=== PATIENT | female | born 1960 | race Caucasian/White ===

== ENCOUNTER 2016-06-26 23:00 | Emergency (ER) | payer OTHER ==
[~2016-06-26] VITALS: Ht 175.3 cm; Wt 90.0 kg
[~2016-06-26 23:00] MED LIST: IOHEXOL 350 MG/ML 10 ML VIAL (for RAD DIAG) IV ONE
[2016-06-26 23:02] VITALS: BP 196/86; PULSE 58; RESP 20; TEMP 98; O2SAT 100
[2016-06-26] MEDS ORDERED: SODIUM CHLOR 0.9% 1000 ML INJ 1,000 ML IV SCH (23:43)
[2016-06-26] MEDS ORDERED: SODIUM CHLORIDE 0.9% FLUSH 5 ML FLUSH IVF PRN (23:45)
[2016-06-26] MEDS ORDERED: ONDANSETRON HCL 4 MG/2 ML VIAL IVP ONE (23:45)
[2016-06-26] MEDS ORDERED: MORPHINE SULFATE 4 MG/ML INJ IV PUSH ONE (23:45)
--- NOTE | 2016-06-27 00:10 | PD ---
HPI Chief Complaint: Flank/Kidney Pain Time Seen by Provider: 23:43 Travel History International Travel<30 days: No Contact w/Intl Traveler<30days: No Traveled to known affect area: No History of Present Illness HPI 56yo F with no significant PMH presents to the ED with c/o right flank pain since last night. States pain started in right lower abdomen and then radiated to right flank. Pain in more in the back and it is constant. +Nausea. Denies any fever, vomiting, chest pain, sob, urinary complaints. Pt took a xanax and it did not help. PFSH Past Medical History Medical History: Denies Significant Hx Diminished Hearing: No Thyroid Disease: Yes Tetanus Vaccination: > 5 Years Influenza Vaccination: No ?: Not Menopausal: Yes : 3 Para: 3 Past Surgical History Surgical History: No Previous Surgery Section: Yes Social History Alcohol Use: Yes (wine occ) Tobacco Use: No Substance Use: No Allergies-Medications (Allergen,Severity, Reaction): Coded Allergies: Vancomycin (Verified Allergy, Severe, CARDIAC ARREST, 06/26/16) Reported Meds & Prescriptions Reported Meds & Active Scripts Active Flomax (Tamsulosin HCl) 0.4 Mg Cap 0.4 Mg PO Q DAY Bactrim DS (Sulfamethoxazole-Trimethoprim) 800-160 Mg Tab 1 Tab PO BID Zofran Odt (Ondansetron Odt) 4 Mg Tab 4 Mg SL Q6HR PRN Percocet (Oxycodone-Acetaminophen) 7.5-325 mg Tab 1 Tab PO Q6H PRN Reported Potassium 99 Mg Tab 99 Mg PO DAILY Biotin 5 Mg Tab 5 Mg PO DAILY Krill Oil 500 mg (Krill Oil) 1 Cap Cap 500 Mg PO DAILY C-1000 (Ascorbic Acid) 1,000 Mg Tab 1,000 Mg PO DAILY Vitamin D-3 (Cholecalciferol) 1,000 Unit Tab 1,000 Units PO DAILY B-12 (Cyanocobalamin) 1,000 Mcg Subl 1,000 Mcg SL DAILY Alprazolam 0.5 Mg Tab 0.5 Mg PO Q8H PRN Levothyroxine (Levothyroxine Sodium) 125 Mcg Tab 125 Mcg PO DAILY Review of Systems Except as stated in HPI: all other systems reviewed are Neg Physical Exam Narrative GENERAL: 56yo F in moderate distress. SKIN: Warm and dry. HEAD: Atraumatic. Normocephalic. EYES: Pupils equal and round. No scleral icterus. No injection or drainage. ENT: No nasal bleeding or discharge. Mucous membranes pink and moist. NECK: Trachea midline. No JVD. CARDIOVASCULAR: Regular rate and rhythm. No murmur appreciated. RESPIRATORY: No accessory muscle use. Clear to auscultation. Breath sounds equal bilaterally. GASTROINTESTINAL: Abdomen soft, +RLQ ttp. No rebound tenderness or guarding. BACK: +CVA tenderness on right. MUSCULOSKELETAL: No obvious deformities. No clubbing. No cyanosis. No edema. NEUROLOGICAL: Awake and alert. No obvious cranial nerve deficits. Motor grossly within normal limits. Normal speech. PSYCHIATRIC: Appropriate mood and affect; insight and judgment normal. Data Data Last Documented VS Vital Signs Date Time Temp Pulse Resp B/P Pulse Ox O2 Delivery O2 Flow Rate FiO2 06/27/16 03:37 72 2 118/57 100 06/26/16 23:02 98.0 Orders Complete Blood Count With Diff (06/26/16 23:43) Comprehensive Metabolic Panel (06/26/16 23:43) Lipase (06/26/16 23:43) Urinalysis - C+S If Indicated (06/26/16 23:43) Ct Abd/Pel W Iv Contrast(Rout) (06/26/16 23:43) Iv Access Insert/Monitor (06/26/16 23:43) Ecg Monitoring (06/26/16 23:43) Oximetry (06/26/16 23:43) NPO (06/26/16 23:43) Morphine Inj (Morphine Inj) (06/26/16 23:45) Ondansetron Inj (Zofran Inj) (06/26/16 23:45) Sodium Chlor 0.9% 1000 Ml Inj (Ns 1000 M (06/26/16 23:43) Sodium Chloride 0.9% Flush (Ns Flush) (06/26/16 23:45) Ed Urine Pregnancytest Poc (06/26/16 23:43) Urine Culture (06/26/16 23:50) Ketorolac Inj (Toradol Inj) (06/27/16 00:45) Ceftriaxone Inj (Rocephin Inj) (06/27/16 00:45) Metoclopramide Inj (Reglan Inj) (06/27/16 01:15) Iohexol 350 Inj (Omnipaque 350 Inj) (06/26/16 13:21) Strain Urine PRN (06/27/16 01:59) Ondansetron Inj (Zofran Inj) (06/27/16 02:45) Oxycodone-Acetamin 7.5-325 Mg (Percocet (06/27/16 02:45) Labs Laboratory Tests Test 06/26/16 23:50 White Blood Count 10.6 TH/MM3 Red Blood Count 4.61 MIL/MM3 Hemoglobin 13.5 GM/DL Hematocrit 39.0 % Mean Corpuscular Volume 84.6 FL Mean Corpuscular Hemoglobin 29.3 PG Mean Corpuscular Hemoglobin 34.6 % Concent Red Cell Distribution Width 13.2 % Platelet Count 259 TH/MM3 Mean Platelet Volume 9.0 FL Neutrophils (%) (Auto) 66.4 % Lymphocytes (%) (Auto) 23.6 % Monocytes (%) (Auto) 8.3 % Eosinophils (%) (Auto) 1.1 % Basophils (%) (Auto) 0.6 % Neutrophils # (Auto) 7.0 TH/MM3 Lymphocytes # (Auto) 2.5 TH/MM3 Monocytes # (Auto) 0.9 TH/MM3 Eosinophils # (Auto) 0.1 TH/MM3 Basophils # (Auto) 0.1 TH/MM3 CBC Comment DIFF FINAL Differential Comment Urine Color YELLOW Urine Turbidity HAZY Urine pH 7.5 Urine Specific [place] 1.012 Urine Protein NEG mg/dL Urine Glucose (UA) NEG mg/dL Urine Ketones TRACE mg/dL Urine Occult Blood SMALL Urine Nitrite NEG Urine Bilirubin NEG Urine Urobilinogen LESS THAN 2.0 MG/DL Urine Leukocyte Esterase MOD Urine RBC 11 /hpf Urine WBC 9 /hpf Microscopic Urinalysis Comment CULTURE INDICATED Sodium Level 142 MEQ/L Potassium Level 4.0 MEQ/L Chloride Level 103 MEQ/L Carbon Dioxide Level 30.5 MEQ/L Anion Gap 9 MEQ/L Blood Urea Nitrogen 18 MG/DL Creatinine 1.02 MG/DL Estimat Glomerular Filtration 56 ML/MIN Rate Random Glucose 93 MG/DL Calcium Level 9.7 MG/DL Total Bilirubin 0.3 MG/DL Aspartate Amino Transf 9 U/L (AST/SGOT) Alanine Aminotransferase 15 U/L (ALT/SGPT) Alkaline Phosphatase 56 U/L Total Protein 7.6 GM/DL Albumin 4.0 GM/DL Lipase 182 U/L [facility] Medical Decision Making Medical Screen Exam Complete: Yes Emergency Medical Condition: Yes Differential Diagnosis Nephrolithiasis vs. pyelonephritis vs. appendicitis Narrative Course 56yo F with right flank pain since yesterday. Impression is more pyelonephritis and nephrolithiasis over appendicitis but pt did have some RLQ tenderness on exam. Labs reviewed, no leukocytosis. Creatinine 1.02. UA showed moderate leukocyte. Trace ketone and small blood. WBC 9, pt given ceftriaxone 1gm IV. Pt given NS IVF x1. CTa/p still pending. Pt given toradol and morphine with improvement of pain. Pt still nauseous after zofran so will give reglan. Sign out to next team Dr. Rocha to follow up CT and reevaluate. Diagnosis Primary Impression: Right ureteral calculus Scripts Tamsulosin (Flomax)0.4 Mg Cap0.4 Mg PO q day #14 CAP Ref 0 Prov:Gala Rocha MD 06/27/16 Sulfamethoxazole-Trimethoprim (Bactrim DS)800-160 Mg Tab1 Tab PO BID #14 TAB Ref 0 Prov:Gala Rocha MD 06/27/16 Ondansetron Odt (Zofran Odt)4 Mg Tab4 Mg SL Q6HR PRN (Nausea/Vomiting) #7 TAB Ref 0 Prov:Gala Rocha MD 06/27/16 Oxycodone-Acetaminophen (Percocet)7.5-325 mg Tab1 Tab PO Q6H PRN (PAIN) #12 TAB Ref 0 Prov:Gala Rocha MD 06/27/16 Daphney Call DO Jun 27, 2016 00:10
[2016-06-27 00:21] LABS: BASOPHIL # 0.1 TH/MM3 (0-0.2); BASOPHIL % 0.6 % (0.0-2.0); EOSINOPHIL # 0.1 TH/MM3 (0-0.4); EOSINOPHIL % 1.1 % (0.0-4.0); HEMO FLAGS DIFF FINAL; LYMPH % 23.6 % (9.0-44.0); LYMPHOCYTE # 2.5 TH/MM3 (1.0-4.8); MEAN CELL VOLUME 84.6 FL (80.0-100.0); MEAN CORPUSCULAR HEMOGLOBIN 29.3 PG (27.0-34.0); MEAN CORPUSCULAR HGB CONC 34.6 % (32.0-36.0); MONO % 8.3 % (0.0-8.0); NEUT % 66.4 % (16.0-70.0); PLATELET COUNT 259 TH/MM3 (150-450); RED BLOOD COUNT 4.61 MIL/MM3 (4.00-5.30); RED CELL DISTRIBUTION WIDTH 13.2 % (11.6-17.2); WHITE BLOOD COUNT 10.6 TH/MM3 (4.0-11.0)
[2016-06-27 00:22] LABS: BLOOD, URINE SMALL (NEG); COMMENT (UR) CULTURE INDICATED; CULTURE IF INDICATED CULTURE INDICATED; GLUCOSE,URINE NEG (NEG); KETONE, URINE TRACE mg/dL (NEG); NITRITE,URINE NEG (NEG); PH, URINE 7.5 (5.0-8.5); URINE COLOR YELLOW (YELLW/STRAW)
[2016-06-27 00:36] LABS: ALT (GPT) 15 U/L (10-53); ANION GAP 9 MEQ/L (5-15); AST (GOT) 9 U/L (15-37); BICARBONATE 30.5 MEQ/L (21.0-32.0); BLOOD UREA NITROGEN 18 MG/DL (7-18); CHLORIDE 103 MEQ/L (98-107); GLOMERULAR FILTRATION RATE 56 ML/MIN (>89); SODIUM (NA) 142 MEQ/L (136-145)
[2016-06-27 00:38] LABS: ALKALINE PHOSPHATASE 56 U/L (45-117); TOTAL BILIRUBIN ADULT 0.3 MG/DL (0.2-1.0)
[2016-06-27] MEDS ORDERED: KETOROLAC TROMETHAMINE 30 MG/ML (IVP) VIAL IV PUSH ONE (00:45)
[2016-06-27] MEDS ORDERED: cefTRIAXone INJ 1,000 MG in SODIUM CHLORIDE 0.9% INJ 100 ML IV ONE (00:45)
[2016-06-27] MEDS ORDERED: METOCLOPRAMIDE INJ 10 MG in SODIUM CHLORIDE 0.9% INJ 50 ML IV ONE (01:15)
[2016-06-27] MEDS ORDERED: [UNRECOGNIZED DRUG - CODE] PO (01:43)
[2016-06-27] MEDS ORDERED: POTA99TA PO (01:43)
[2016-06-27] MEDS ORDERED: ALPR0.5T3 PO (01:43)
[2016-06-27] MEDS ORDERED: VITA10003 PO (01:43)
[2016-06-27] MEDS ORDERED: KRIL1CAP11 PO (01:43)
[2016-06-27] MEDS ORDERED: BIOT5TAB PO (01:43)
[2016-06-27] MEDS ORDERED: CYAN100025 SL (01:43)
[2016-06-27] MEDS ORDERED: LEVO125T4 PO (01:43)
--- NOTE | 2016-06-27 01:49 | RADRPT ---
EXAM DATE/TIME: 06/27/2016 01:20 [place] COMPARISON: No previous studies available for comparison. INDICATIONS : Right sided abdomen pain IV CONTRAST: 89 cc Omnipaque 350 (iohexol) IV ORAL CONTRAST: No oral contrast ingested. RADIATION DOSE: 10.19 CTDIvol (mGy) MEDICAL HISTORY : Renal calculi. SURGICAL HISTORY : section. ENCOUNTER: Initial ACUITY: 1 day PAIN SCALE: 10/10 LOCATION: Right abdomen TECHNIQUE: Volumetric scanning of the abdomen and pelvis was performed. Using automated exposure control and ad justment of the mA and/or kV according to patient size, radiation dose was kept as low as reasonably achievable to obtain optimal diagnostic quality images. FINDINGS: LOWER LUNGS: The visualized lower lungs are clear. LIVER: Homogeneous density without lesion. There is no dilation of the biliary tree. No calcified gallston es. SPLEEN: Normal size without lesion. PANCREAS: Within normal limits. KIDNEYS: Bilateral renal calculi including a 4 mm calculus in the lower pole on the right, 4 mm calculus in th e lower pole on the left. 5 mm x 3 mm calculus in the distal right ureter at the ureterovesical junct ion. Moderate diffuse right hydroureter. Mild to moderate right hydronephrosis. No evidence of hydron ephrosis on the left. ADRENAL GLANDS: Within normal limits. VASCULAR: There is no aortic aneurysm. BOWEL/MESENTERY: Numerous colonic diverticula. No evidence of acute diverticulitis. No evidence of bowel dilatation. N o free air or free fluid. Appendix not identified. ABDOMINAL WALL: Within normal limits. RETROPERITONEUM: There is no lymphadenopathy. BLADDER: No wall thickening or mass. REPRODUCTIVE: Within normal limits. INGUINAL: There is no lymphadenopathy or hernia. MUSCULOSKELETAL: Within normal limits for patient age. CONCLUSION: Bilateral renal calculi. Distal right ureteral calculus at the ureterovesical junction with moderate right hydroureter and mild/moderate right hydronephrosis. Jude Powell MD on June 27, 2016 at 1:43 Board Certified Radiologist. This report was verified electronically.
[2016-06-27] MEDS ORDERED: BACT800T5 PO (02:15)
[2016-06-27] MEDS ORDERED: PERC7.5T13 PO (02:15)
[2016-06-27] MEDS ORDERED: ZOFR4TAB3 SL (02:15)
[2016-06-27] MEDS ORDERED: TAMS5CAP PO (02:16)
--- NOTE | 2016-06-27 02:16 | PD ---
Data Data Last Documented VS Vital Signs Date Time Temp Pulse Resp B/P Pulse Ox O2 Delivery O2 Flow Rate FiO2 06/26/16 23:22 20 06/26/16 23:02 98.0 58 196/86 100 Orders Complete Blood Count With Diff (06/26/16 23:43) Comprehensive Metabolic Panel (06/26/16 23:43) Lipase (06/26/16 23:43) Urinalysis - C+S If Indicated (06/26/16 23:43) Ct Abd/Pel W Iv Contrast(Rout) (06/26/16 23:43) Iv Access Insert/Monitor (06/26/16 23:43) Ecg Monitoring (06/26/16 23:43) Oximetry (06/26/16 23:43) NPO (06/26/16 23:43) Morphine Inj (Morphine Inj) (06/26/16 23:45) Ondansetron Inj (Zofran Inj) (06/26/16 23:45) Sodium Chlor 0.9% 1000 Ml Inj (Ns 1000 M (06/26/16 23:43) Sodium Chloride 0.9% Flush (Ns Flush) (06/26/16 23:45) Ed Urine Pregnancytest Poc (06/26/16 23:43) Urine Culture (06/26/16 23:50) Ketorolac Inj (Toradol Inj) (06/27/16 00:45) Ceftriaxone Inj (Rocephin Inj) (06/27/16 00:45) Metoclopramide Inj (Reglan Inj) (06/27/16 01:15) Iohexol 350 Inj (Omnipaque 350 Inj) (06/26/16 13:21) Strain Urine PRN (06/27/16 01:59) Labs Laboratory Tests Test 06/26/16 23:50 White Blood Count 10.6 TH/MM3 Red Blood Count 4.61 MIL/MM3 Hemoglobin 13.5 GM/DL Hematocrit 39.0 % Mean Corpuscular Volume 84.6 FL Mean Corpuscular Hemoglobin 29.3 PG Mean Corpuscular Hemoglobin 34.6 % Concent Red Cell Distribution Width 13.2 % Platelet Count 259 TH/MM3 Mean Platelet Volume 9.0 FL Neutrophils (%) (Auto) 66.4 % Lymphocytes (%) (Auto) 23.6 % Monocytes (%) (Auto) 8.3 % Eosinophils (%) (Auto) 1.1 % Basophils (%) (Auto) 0.6 % Neutrophils # (Auto) 7.0 TH/MM3 Lymphocytes # (Auto) 2.5 TH/MM3 Monocytes # (Auto) 0.9 TH/MM3 Eosinophils # (Auto) 0.1 TH/MM3 Basophils # (Auto) 0.1 TH/MM3 CBC Comment DIFF FINAL Differential Comment Urine Color YELLOW Urine Turbidity HAZY Urine pH 7.5 Urine Specific [place] 1.012 Urine Protein NEG mg/dL Urine Glucose (UA) NEG mg/dL Urine Ketones TRACE mg/dL Urine Occult Blood SMALL Urine Nitrite NEG Urine Bilirubin NEG Urine Urobilinogen LESS THAN 2.0 MG/DL Urine Leukocyte Esterase MOD Urine RBC 11 /hpf Urine WBC 9 /hpf Microscopic Urinalysis Comment CULTURE INDICATED Sodium Level 142 MEQ/L Potassium Level 4.0 MEQ/L Chloride Level 103 MEQ/L Carbon Dioxide Level 30.5 MEQ/L Anion Gap 9 MEQ/L Blood Urea Nitrogen 18 MG/DL Creatinine 1.02 MG/DL Estimat Glomerular Filtration 56 ML/MIN Rate Random Glucose 93 MG/DL Calcium Level 9.7 MG/DL Total Bilirubin 0.3 MG/DL Aspartate Amino Transf 9 U/L (AST/SGOT) Alanine Aminotransferase 15 U/L (ALT/SGPT) Alkaline Phosphatase 56 U/L Total Protein 7.6 GM/DL Albumin 4.0 GM/DL Lipase 182 U/L [facility] Medical Record Reviewed: Yes Supervised Visit with SHREE: No Narrative Course During the course of the patients emergency department visit, the patients history, examination, and differential diagnosis were reviewed with the patient. The patient had IV access obtained and blood work sent for analysis. The patient was placed on a court monitor with oximetry and blood pressure monitoring. The patient was initially evaluated by Dr. Call who ordered laboratory studies and imaging of the abdomen and pelvis. The patient's case is checked out to me at the conclusion of her shift to review the patient's CT scan of the abdomen and pelvis. She was concerned that the patient may have a kidney stone The patient was provided normal saline IV fluids, morphine for pain, Zofran for nausea. The patient was given Rocephin 1 g IV after urinalysis revealed possible signs of infection, Toradol 30 mg IV for pain, Reglan IV for persistent nausea. The patients laboratory studies were reviewed and remarkable for a white count of 10.6, hemoglobin 13.5, platelets 259 with a 0.3 monocytes. CMP is remarkable for creatinine 1.02, GFR 56, AST 9, lipase 182. Urinalysis shows trace ketones small occult blood moderate leukocyte esterase 11 RBCs 9 WBCs, culture indicated. Radiology studies were reviewed and remarkable for bilateral renal calculi that are nonobstructing, distal right ureteral calculus at the UVJ with moderate right hydroureter and [id number] right hydronephrosis. The calculus is 5 x 3 mm. The patient's results were discussed with her. The patient's pain level had improved. The patient will be discharged home to follow-up with the urologist. The patient was given the name of the urologist on-call, Dr. Arnett for follow -up. The patient will be discharged home with a prescription for Zofran for nausea, Percocet, and Bactrim. The patient is resting comfortably and feels better, is alert and in no distress. The patients results and examination findings were discussed with the patient. The repeat examination is unremarkable and benign. The history, exam, diagnostic testing, and current condition do not suggest any significant pathology to warrant further testing, continued ED treatment, admission, or surgical evaluation at this point. The vital signs have been stable. The patient does not have uncontrollable pain, intractable vomiting, or other significant symptoms. The patient's condition is stable and appropriate for discharge. The patient will pursue further outpatient evaluation with a primary care physician or other designated or consulting physician as indicated in the discharge instructions. The patient expressed understanding and was agreeable with this plan. Diagnosis Primary Impression: Right ureteral calculus Referrals: Tenzin Arnett DO 2 days Patient Instructions: General Instructions, Kidney Stones (ED) Med/Other Pt SpecificInfo: Prescription(s) given Scripts Tamsulosin (Flomax)0.4 Mg Cap0.4 Mg PO q day #14 CAP Ref 0 Prov:Gala Rocha MD 06/27/16 Sulfamethoxazole-Trimethoprim (Bactrim DS)800-160 Mg Tab1 Tab PO BID #14 TAB Ref 0 Prov:Gala Rocha MD 06/27/16 Ondansetron Odt (Zofran Odt)4 Mg Tab4 Mg SL Q6HR PRN (Nausea/Vomiting) #7 TAB Ref 0 Prov:Gala Rocha MD 06/27/16 Oxycodone-Acetaminophen (Percocet)7.5-325 mg Tab1 Tab PO Q6H PRN (PAIN) #12 TAB Ref 0 Prov:Gala Rocha MD 06/27/16 Disposition: 01 DISCHARGE HOME Condition: Stable Gala Rocha MD Jun 27, 2016 02:16
[2016-06-27] MEDS ORDERED: oxyCODONE/ACETAMINOPHEN 7.5 MG/325 MG TAB PO ONE (02:45)
[2016-06-27] MEDS ORDERED: ONDANSETRON HCL 4 MG/2 ML VIAL IV ONE (02:45)
[2016-06-27 03:36] VITALS: O2SAT 100
[2016-06-27 03:37] VITALS: BP 118/57
== END 2016-06-27 03:38 | disposition home or self-care (01) ==
LOC: NEPA 23:00
DX: N20.1 Calculus of ureter (principal); E07.9 Disorder of thyroid, unspecified
CPT/HCPCS: 74177; 80053; 81001; 83690; 85025; 87086; 96361; 96365; 96368; 96375; 96376; 99284; J0696; J1885; J2270; J2405; J2765; J7030; Q9967